=== PATIENT | male | born 1940 | race Caucasian/White ===

== ENCOUNTER 2023-06-06 06:30 | Day surgery (SDC) | payer MEDICARE, BC, SELFPAY ==
[2023-06-06 10:45] VITALS: BMI 27.6
[2023-06-06 11:00] VITALS: BP 156/72
[2023-06-06 11:13] VITALS: BMI 27.6
[2023-06-06 12:25] VITALS: BP 122/63
[2023-06-06 12:40] VITALS: BP 121/66
[2023-06-06 12:55] VITALS: BP 135/71
== END 2023-06-06 13:17 | disposition home or self-care (01) ==
LOC: GI 06:30
PROVIDERS: ATTENDING PHYSICIAN Internal Medicine Gastroenterology
DX: Z12.11 Encounter for screening for malignant neoplasm of colon (principal); D12.2 Benign neoplasm of ascending colon; D12.3 Benign neoplasm of transverse colon; K57.30 Diverticulosis of large intestine without perforation or abscess without bleeding; Q43.8 Other specified congenital malformations of intestine; K64.0 First degree hemorrhoids; Z86.010 Personal history of colon polyps
CPT/HCPCS: 45385; 88305; 93005